=== PATIENT | male | born 1985 ===

== ENCOUNTER 2021-01-25 22:31 | Emergency (ER) | payer OTHER ==
[~2021-01-25] VITALS: Ht 180.3 cm; Wt 102.1 kg
[2021-01-26] MEDS ORDERED: DICLOFENAC SODI75 MG PO (00:06)
== END 2021-01-26 00:50 | disposition home or self-care (01) ==
LOC: ER 22:31
DX: S20.213A Contusion of bilateral front wall of thorax, initial encounter (principal); S00.83XA Contusion of other part of head, initial encounter; V19.9XXA Pedal cyclist (driver) (passenger) injured in unspecified traffic accident, initial encounter; Y93.89 Activity, other specified; Y92.89 Other specified places as the place of occurrence of the external cause; Y99.8 Other external cause status